=== PATIENT | male | born 1970 | race American Indian/Alaskan Native ===

== ENCOUNTER 2017-02-25 04:32 | Emergency (ER) | payer BC ==
[2017-02-25 05:26] VITALS: BP 143/97
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
== END 2017-02-25 06:30 | disposition home or self-care (01) ==
LOC: ED 04:32
DX: K12.2 Cellulitis and abscess of mouth (principal); L73.8 Other specified follicular disorders